=== PATIENT | male | born 1955 | race Caucasian/White ===

== ENCOUNTER 2021-09-04 09:58 | Outpatient (CLI) | payer MEDICARE, OTHER ==
[2021-09-04 11:49] LABS: Hemoglobin 13.7 g/dL (13.5-17.5); Mean Corpuscular HGB CONC 32.6 g/dL (32.0-36.0); Mean Corpuscular Hemoglobin 27.5 pg (27.0-33.0); Mean Corpuscular Volume 84.3 fl (81.2-95.1); Mean Platelet Volume 10.3 fl (7.4-10.4); Platelet Count 280 10x3/uL (150-450); RBC Distribution Width 12.9 % (11.5-14.5); Red Blood Cell (RBC) Count 4.98 10x6/uL (4.32-5.72); White Blood Cell (WBC) Count 9.3 10x3/uL (3.5-10.5)
[2021-09-04 11:57] LABS: Anion Gap 16 mmol/L (10-20); BUN (Urea Nitrogen) 36 mg/dL (8.4-25.7); Calc. Creatinine Clearance 0 mL/min (70-130); Calcium 9.5 mg/dL (7.8-10.44); Carbon Dioxide 23 mmol/L (23-31); Chloride 107 mmol/L (98-107); Glucose 90 mg/dL (80-115); Potassium 4.6 mmol/L (3.5-5.1); Sodium 141 mmol/L (136-145)
[2021-09-04 11:59] LABS: INR-International Normal Ratio 0.9; PTT 25.2 sec (22.0-33.0); Prothrombin Time 9.8 sec (9.5-12.1)
== END 2021-09-04 09:59 | disposition home or self-care (01) ==
LOC: LABBT 09:58
PROVIDERS: ATTEND Surgery
DX: Z01.818 Encounter for other preprocedural examination (principal); M48.061 Spinal stenosis, lumbar region without neurogenic claudication; M51.16 Intervertebral disc disorders with radiculopathy, lumbar region
CPT/HCPCS: 80048; 85027; 85610; 85730; 93005; U0003; U0005; 93010

== ENCOUNTER 2021-09-07 05:47 | Observation (INO) | payer OTHER, MEDICARE ==
[2021-09-04 10:45] VITALS: BMI 28.5
[2021-09-07] MEDS ORDERED: HYDROmorphone 2 MG/ML VIAL ONE (07:00)
[2021-09-07] MEDS ORDERED: Propofol 500 MG/50 ML VIAL ONE (07:00)
[2021-09-07] MEDS ORDERED: fentaNYL Citrate/PF 100 MCG/2 ML SYRINGE ONE (07:00)
[2021-09-07] MEDS ORDERED: Lidocaine 1% PF 5 ML VIAL ONE (07:48)
[2021-09-07] MEDS ORDERED: PHENYLEPHRINE-NS 100 MCG/ML 10 ML SYRINGE ONE (07:48)
[2021-09-07] MEDS ORDERED: PROPOFOL 200 MG/20 ML VIAL ONE (07:48)
[2021-09-07] MEDS ORDERED: Ondansetron PF 4 MG/2 ML Vial ONE (07:48)
[2021-09-07] MEDS ORDERED: Glycopyrrolate 0.2 MG/ML 5 ML SYRINGE ONE (07:48)
[2021-09-07] MEDS ORDERED: Dexamethasone 20 MG/5 ML VIAL ONE (07:48)
[2021-09-07] MEDS ORDERED: ePHEDrine 50 MG/ML VIAL ONE (07:48)
[2021-09-07] MEDS ORDERED: Rocuronium Bromide 10 MG/ML (10ML VIAL) ONE (07:48)
[2021-09-07] MEDS ORDERED: Esmolol 100 MG/10 ML VIAL ONE (07:48)
[2021-09-07] MEDS ORDERED: Morphine 2 MG/ML VIAL SLOW IVP PRN (11:01)
[2021-09-07] MEDS ORDERED: Ondansetron PF 4 MG/2 ML Vial IVP PRN (11:01)
[2021-09-07] MEDS ORDERED: traMADol HCl 50 MG TAB PO PRN (11:01)
[2021-09-07] MEDS ORDERED: Acetaminophen 325 MG TAB PO PRN (11:01)
[2021-09-07] MEDS ORDERED: hydrALAZINE 20 MG/ML VIAL SLOW IVP PRN (11:04)
[2021-09-07] MEDS ORDERED: tiZANidine HCl 4 MG TAB PO PRN (11:05)
[2021-09-07] MEDS ORDERED: Fentanyl 100 MCG/2 ML VIAL ONE (11:06)
[2021-09-07] MEDS ORDERED: HYDROmorphone 2 MG/ML VIAL SLOW IVP PRN (11:10)
[2021-09-07] MEDS ORDERED: Promethazine HCl 25 MG/ML VIAL IVPB PRN (11:10)
[2021-09-07] MEDS ORDERED: Meperidine HCl/PF 25 MG/ML VIAL SLOW IVP PRN (11:10)
[2021-09-07] MEDS ORDERED: CEFAZOLIN 2 GM in Sodium Chloride 0.9% 100 ML IVPB SCH (12:00)
[2021-09-07] MEDS: HYDROcodone/Acetaminophen 7.5/325 mg Tablet PO PRN ×2 (16:08→21:56)
[2021-09-07] MEDS: Sodium Chloride 0.9% 1,000 ML IV SCH (16:14)
[2021-09-07] MEDS: metFORMIN XR 500 MG TAB PO SCH (18:21)
[2021-09-07] MEDS: CEFAZOLIN 2 GM in Sodium Chloride 0.9% 100 ML IVPB SCH (18:22)
[2021-09-07] MEDS: glipiZIDE 10 MG TAB PO SCH (21:49)
[2021-09-08] MEDS: Acetaminophen/Codeine 30-300mg Tablet PO PRN ×2 (01:07→14:46)
[2021-09-08] MEDS: Sodium Chloride 0.9% 1,000 ML IV SCH ×2 (01:10→15:34)
[2021-09-08] MEDS: CEFAZOLIN 2 GM in Sodium Chloride 0.9% 100 ML IVPB SCH (01:14)
[2021-09-08] MEDS: HYDROcodone/Acetaminophen 7.5/325 mg Tablet PO PRN ×2 (04:24→11:34)
[2021-09-08] MEDS ORDERED: Lisinopril 20 MG TAB PO SCH (09:00)
[2021-09-08] MEDS: glipiZIDE 10 MG TAB PO SCH (09:30)
[2021-09-08] MEDS: metFORMIN XR 500 MG TAB PO SCH (09:30)
[2021-09-08 12:50] VITALS: BP 105/64; TEMP 97.6
[2021-09-08] MEDS ORDERED: Atorvastatin Calcium 40 MG TAB PO SCH (21:00)
== END 2021-09-08 16:10 | disposition home or self-care (01) ==
LOC: SDC 05:47 → MSONC 12:42
PROVIDERS: ADMIT Surgery; ATTEND Surgery
PROC: 01NB0ZZ Release Lumbar Nerve, Open Approach (ICD-10-PCS; principal; 2021-09-07)
PROC: 0SB20ZZ Excision of Lumbar Vertebral Disc, Open Approach (ICD-10-PCS; 2021-09-07)
DX: M48.062 Spinal stenosis, lumbar region with neurogenic claudication (principal); M51.16 Intervertebral disc disorders with radiculopathy, lumbar region; I10 Essential (primary) hypertension; E78.5 Hyperlipidemia, unspecified; Z79.84 Long term (current) use of oral hypoglycemic drugs; Z79.899 Other long term (current) drug therapy
CPT/HCPCS: 36416; 76000; 96365; 96366; G0378; J0690; J1100; J1170; J2405; J2704; J3010; J3490; J7050

== ENCOUNTER 2021-10-07 16:01 | Inpatient (IN) | payer OTHER, MEDICARE ==
[~2021-10-07 16:01] MED LIST: Iopamidol-370 76% 500 ML 1 ML ONE
[2021-10-07 16:32] LABS: #Eosinphils 0.3 thou/uL (0.0-0.7); #Monocytes 0.9 thou/uL (0.11-0.59); #Neutrophils 8.1 thou/uL (1.40-6.50); %Basophils 0.1 % (0.0-1.0); %Eosinophils 2.9 % (0.0-10.0); %Lymphocytes 17.9 % (21.0-51.0); %Monocytes 7.7 % (0.0-10.0); %Neutrophils 71.4 % (42.0-75.0); Hemoglobin 11.9 g/dL (14.0-18.0); Mean Corpuscular HGB CONC 32.4 g/dL (32.0-36.0); Mean Corpuscular Hemoglobin 28.5 pg (27.0-31.0); Mean Corpuscular Volume 87.9 fL (78.0-98.0); Mean Platelet Volume 7.8 fL (7.4-10.4); Platelet Count 209 thou/uL (130-400); RBC Distribution Width 12.7 % (11.5-14.5); Red Blood Cell (RBC) Count 4.18 mill/uL (4.70-6.10); White Blood Cell (WBC) Count 11.3 thou/uL (4.8-10.8)
[2021-10-07 16:54] LABS: ALT (SGPT) 38 U/L (8-55); AST (SGOT) 78 U/L (5-34); Albumin 3.5 g/dL (3.4-4.8); Alkaline Phosphatase 119 U/L (40-110); Anion Gap 14 mmol/L (10-20); BUN (Urea Nitrogen) 25 mg/dL (8.4-25.7); Bilirubin, Total 1.1 mg/dL (0.2-1.2); Calc. Creatinine Clearance 0 mL/min (70-130); Calcium 8.8 mg/dL (7.8-10.44); Carbon Dioxide 21 mmol/L (23-31); Chloride 107 mmol/L (98-107); Estimated GFR 63; Globulin 3.3 g/dL (2.4-3.5); Glucose 173 mg/dL (80-115); Lipase 120 U/L (8-78); Potassium 4.7 mmol/L (3.5-5.1); Protein, Total 6.8 g/dL (5.8-8.1); Sodium 137 mmol/L (136-145)
[2021-10-07] MEDS ORDERED: Fentanyl 100 MCG/2 ML VIAL ONE (18:57)
[2021-10-07] MEDS ORDERED: Acetaminophen 325 MG TAB PO PRN ×2 (21:45→22:00)
[2021-10-07] MEDS ORDERED: Ondansetron PF 4 MG/2 ML Vial IVP PRN ×2 (21:45→22:00)
[2021-10-07] MEDS ORDERED: Senokot S 8.6-50 MG TAB PO PRN (21:45)
[2021-10-07] MEDS ORDERED: Bisacodyl 5 MG TAB PO PRN (21:45)
[2021-10-07] MEDS ORDERED: Ondansetron ODT 4 MG TAB PO PRN (21:45)
[2021-10-07] MEDS ORDERED: HYDROcodone/Acetaminophen 5/325 mg Tablet PO PRN (21:45)
[2021-10-07 21:49] VITALS: BMI 29.4
[2021-10-07] MEDS ORDERED: Ondansetron ODT 4 MG TAB SL PRN (22:00)
[2021-10-07] MEDS ORDERED: Sodium Chloride 0.9% 1,000 ML IV SCH (22:00)
[2021-10-07] MEDS ORDERED: Morphine 2 MG/ML VIAL SLOW IVP PRN (22:17)
[2021-10-07] MEDS ORDERED: Dextrose 50% Abboject 50 ML SYRINGE SLOW IVP PRN (22:18)
[2021-10-07] MEDS ORDERED: Dextrose 5% in Water 1,000 ML IV PRN (22:18)
[2021-10-07] MEDS ORDERED: HumaLOG 300 UNITS/3 ML VIAL SC PRN (22:18)
[2021-10-07 22:30] LABS: Troponin I Less than 0.010 ng/mL (< 0.028)
[2021-10-07 22:56] LABS: Hemoglobin A1c 7.7 % (4.0-6.0)
[2021-10-07] MEDS: Sodium Chloride 0.9% 1,000 ML IV SCH (23:35)
[2021-10-08] MEDS: Nitroglycerin 2% Ointment 1 INCH/1 GM Packet TOP SCH ×4 (00:31→21:16)
[2021-10-08 05:08] LABS: #Eosinphils 0.2 thou/uL (0.0-0.7); #Lymphocytes 1.5 thou/uL (1.20-3.40); #Monocytes 0.8 thou/uL (0.11-0.59); #Neutrophils 6.8 thou/uL (1.40-6.50); %Basophils 0.1 % (0.0-1.0); %Eosinophils 2.4 % (0.0-10.0); %Lymphocytes 16.3 % (21.0-51.0); %Monocytes 8.3 % (0.0-10.0); %Neutrophils 72.9 % (42.0-75.0); Hemoglobin 11.8 g/dL (14.0-18.0); Mean Corpuscular Hemoglobin 29.2 pg (27.0-31.0); Mean Corpuscular Volume 88.4 fL (78.0-98.0); Mean Platelet Volume 7.5 fL (7.4-10.4); Platelet Count 189 thou/uL (130-400); RBC Distribution Width 12.8 % (11.5-14.5); Red Blood Cell (RBC) Count 4.06 mill/uL (4.70-6.10); White Blood Cell (WBC) Count 9.3 thou/uL (4.8-10.8)
[2021-10-08 05:31] LABS: ALT (SGPT) 121 U/L (8-55); AST (SGOT) 176 U/L (5-34); Albumin 3.4 g/dL (3.4-4.8); Alkaline Phosphatase 134 U/L (40-110); Anion Gap 12 mmol/L (10-20); BUN (Urea Nitrogen) 17 mg/dL (8.4-25.7); Bilirubin, Total 2.4 mg/dL (0.2-1.2); Calc. Creatinine Clearance 115 mL/min (70-130); Calcium 8.5 mg/dL (7.8-10.44); Carbon Dioxide 21 mmol/L (23-31); Cardiac Risk 2.2 (Less than 4.5); Chloride 108 mmol/L (98-107); Cholesterol 86 mg/dl (< 200 Desired); Estimated GFR 95; Globulin 3.3 g/dL (2.4-3.5); Glucose 68 mg/dL (80-115); HDL Cholesterol 40 mg/dL (>60 Neg Risk); LDL Cholesterol, Calculated 38 mg/dL; Lipase 33 U/L (8-78); Potassium 4.1 mmol/L (3.5-5.1); Protein, Total 6.7 g/dL (5.8-8.1); Sodium 137 mmol/L (136-145); Triglycerides 41 mg/dL (Less than 150)
[2021-10-08] MEDS: Aspirin Chewable 81 MG TAB PO SCH (07:56)
[2021-10-08] MEDS: Sodium Chloride 0.9% 1,000 ML IV SCH (07:57)
[2021-10-08] MEDS ORDERED: Regadenoson 0.4 MG/5 ML SYRINGE ONE (11:24)
[2021-10-08] MEDS: Enoxaparin Sodium 40 MG/0.4 ML SYRINGE SC SCH (13:14)
[2021-10-09] MEDS: Sodium Chloride 0.9% 1,000 ML IV SCH ×3 (01:44→17:32)
[2021-10-09 05:30] LABS: #Eosinphils 0.5 thou/uL (0.0-0.7); #Lymphocytes 1.7 thou/uL (1.20-3.40); #Monocytes 0.9 thou/uL (0.11-0.59); #Neutrophils 6.7 thou/uL (1.40-6.50); %Basophils 0.1 % (0.0-1.0); %Eosinophils 4.9 % (0.0-10.0); %Lymphocytes 17.1 % (21.0-51.0); %Monocytes 8.9 % (0.0-10.0); Hemoglobin 11.1 g/dL (14.0-18.0); Mean Corpuscular HGB CONC 32.7 g/dL (32.0-36.0); Mean Corpuscular Hemoglobin 28.4 pg (27.0-31.0); Mean Corpuscular Volume 86.9 fL (78.0-98.0); Mean Platelet Volume 8.3 fL (7.4-10.4); Platelet Count 181 thou/uL (130-400); RBC Distribution Width 12.7 % (11.5-14.5); Red Blood Cell (RBC) Count 3.92 mill/uL (4.70-6.10); White Blood Cell (WBC) Count 9.6 thou/uL (4.8-10.8)
[2021-10-09 05:42] LABS: ALT (SGPT) 116 U/L (8-55); AST (SGOT) 79 U/L (5-34); Albumin 3.3 g/dL (3.4-4.8); Alkaline Phosphatase 191 U/L (40-110); Anion Gap 10 mmol/L (10-20); BUN (Urea Nitrogen) 12 mg/dL (8.4-25.7); Bilirubin, Total 1.6 mg/dL (0.2-1.2); Calc. Creatinine Clearance 99 mL/min (70-130); Calcium 8.8 mg/dL (7.8-10.44); Carbon Dioxide 24 mmol/L (23-31); Chloride 108 mmol/L (98-107); Estimated GFR 82; Globulin 3.4 g/dL (2.4-3.5); Glucose 140 mg/dL (80-115); Lipase 37 U/L (8-78); Protein, Total 6.7 g/dL (5.8-8.1); Sodium 138 mmol/L (136-145)
[2021-10-09] MEDS: Nitroglycerin 2% Ointment 1 INCH/1 GM Packet TOP SCH ×3 (06:12→21:38)
[2021-10-09] MEDS: Enoxaparin Sodium 40 MG/0.4 ML SYRINGE SC SCH (08:15)
[2021-10-09] MEDS: Aspirin Chewable 81 MG TAB PO SCH (08:18)
[2021-10-09] MEDS: Lisinopril 20 MG TAB PO SCH (08:18)
[2021-10-09] MEDS ORDERED: Amlodipine 5 MG TAB PO SCH (11:45)
[2021-10-09] MEDS ORDERED: Bupivacaine/Epinephrine 0.25% 30 ML VIAL ONE (13:45)
[2021-10-09] MEDS ORDERED: Iopamidol 15 ML ONE ×2 (13:45→13:53)
[2021-10-09] MEDS ORDERED: fentaNYL Citrate/PF 100 MCG/2 ML SYRINGE ONE (13:46)
[2021-10-09] MEDS ORDERED: cefOXitin 2 GM VIAL ONE (14:04)
[2021-10-09] MEDS ORDERED: Sodium Chloride 0.9% 100 ML ONE (14:04)
[2021-10-09] MEDS ORDERED: Propofol 1,000 MG/100 ML VIAL IV ONE ×2 (14:20→14:44)
[2021-10-09] MEDS ORDERED: ePHEDrine 50 MG/ML VIAL ONE (14:22)
[2021-10-09] MEDS ORDERED: Ondansetron PF 4 MG/2 ML Vial ONE (14:22)
[2021-10-09] MEDS ORDERED: Rocuronium Bromide 10 MG/ML (10ML VIAL) ONE (14:22)
[2021-10-09] MEDS ORDERED: Lidocaine 1% PF 5 ML VIAL ONE (14:22)
[2021-10-09] MEDS ORDERED: Dexamethasone 20 MG/5 ML VIAL ONE (14:22)
[2021-10-09] MEDS ORDERED: Ketorolac Tromethamine 30 MG/ML VIAL ONE (14:22)
[2021-10-09] MEDS ORDERED: PROPOFOL 200 MG/20 ML VIAL ONE (14:22)
[2021-10-09] MEDS ORDERED: Ondansetron HCl/PF 4 MG/2 ML Vial IVP PRN (16:44)
[2021-10-09] MEDS ORDERED: Promethazine HCl 25 MG/ML VIAL IVPB PRN (16:44)
[2021-10-09] MEDS ORDERED: HYDROmorphone 2 MG/ML VIAL SLOW IVP PRN (16:44)
[2021-10-09] MEDS ORDERED: PACU-Morphine 4MG/ML VIAL SLOW IVP PRN (16:44)
[2021-10-09] MEDS ORDERED: Promethazine HCl 25 MG/ML VIAL IM PRN (16:44)
[2021-10-09] MEDS ORDERED: traMADol HCl 50 MG TAB PO PRN (16:51)
[2021-10-09] MEDS ORDERED: Piperacillin/Tazobactam 4.5 GM in Sodium Chloride 0.9% 100 ML IVPB SCH (16:52)
[2021-10-09] MEDS ORDERED: Piperacillin/Tazobactam 3.375 GM in Sodium Chloride 0.9% 100 ML IVPB SCH (18:00)
[2021-10-09] MEDS: traMADol HCl 50 MG TAB PO SCH ×2 (18:17→23:01)
[2021-10-09] MEDS: Piperacillin/Tazobactam 3.375 GM in Sodium Chloride 0.9% 100 ML IVPB SCH (21:39)
[2021-10-10] MEDS: Piperacillin/Tazobactam 3.375 GM in Sodium Chloride 0.9% 100 ML IVPB SCH ×2 (05:08→13:44)
[2021-10-10] MEDS: Sodium Chloride 0.9% 1,000 ML IV SCH (05:09)
[2021-10-10] MEDS: traMADol HCl 50 MG TAB PO SCH ×2 (05:10→10:58)
[2021-10-10] MEDS: Nitroglycerin 2% Ointment 1 INCH/1 GM Packet TOP SCH ×2 (05:43→13:44)
[2021-10-10] MEDS: HumaLOG 300 UNITS/3 ML VIAL SC PRN ×2 (06:49→10:59)
[2021-10-10] MEDS: Aspirin Chewable 81 MG TAB PO SCH (07:35)
[2021-10-10] MEDS: Lisinopril 20 MG TAB PO SCH (07:35)
[2021-10-10] MEDS: Enoxaparin Sodium 40 MG/0.4 ML SYRINGE SC SCH (07:35)
[2021-10-10] MEDS ORDERED: Amlodipine 5 MG TAB PO SCH (09:00)
[2021-10-10] MEDS ORDERED: Atorvastatin Calcium 40 MG TAB PO SCH (09:00)
[2021-10-10 11:53] VITALS: BP 130/69; TEMP 97.7
== END 2021-10-10 15:05 | disposition home or self-care (01) | DRG 419 ==
LOC: ERS 16:01 → 2SW 20:28 → OBSVTOIN 10-09 18:00
PROVIDERS: ADMIT Internal Medicine; ATTEND Internal Medicine
PROC: 0FT44ZZ Resection of Gallbladder, Percutaneous Endoscopic Approach (ICD-10-PCS; principal; 2021-10-09)
PROC: BF0C1ZZ Plain Radiography of Hepatobiliary System, All using Low Osmolar Contrast (ICD-10-PCS; 2021-10-09)
DX: K80.12 Calculus of gallbladder with acute and chronic cholecystitis without obstruction (principal); R07.89 Other chest pain; Z20.822 Contact with and (suspected) exposure to COVID-19; E27.8 Other specified disorders of adrenal gland; I10 Essential (primary) hypertension; E11.42 Type 2 diabetes mellitus with diabetic polyneuropathy; Z96.652 Presence of left artificial knee joint; E78.00 Pure hypercholesterolemia, unspecified; F17.220 Nicotine dependence, chewing tobacco, uncomplicated; Z96.662 Presence of left artificial ankle joint; R74.01 Elevation of levels of liver transaminase levels; Z96.1 Presence of intraocular lens; E78.5 Hyperlipidemia, unspecified; Z79.899 Other long term (current) drug therapy; Z79.84 Long term (current) use of oral hypoglycemic drugs; Z82.49 Family history of ischemic heart disease and other diseases of the circulatory system
CPT/HCPCS: 36415; 36416; 47532; 71045; 71275; 74177; 74181; 76705; 78452; 80053; 80061; 83036; 83690; 84443; 84484; 85025; 86850; 86900; 86901; 88304; 93005; 93017; 94760; 96372; 96375; A9500; C1713; G0378; J0694; J1100; J1650; J1815; J1885; J2405; J2543; J2704; J2785; J3010; J3490; J7050; J7999; Q9967; U0003; U0005